=== PATIENT | male | born 1980 | race Two or more races ===

== ENCOUNTER 2016-12-14 12:42 | Emergency (ER) | payer SELFPAY ==
[2016-11-19 12:45] VITALS: BP 125/79
[~2016-12-14 12:42] MED LIST: DOXY100C2 PO; HYDR-971 PO
[2016-12-15] MEDS ORDERED: EPIN0.3A3 IJ (22:41)
[2016-12-15] MEDS ORDERED: PRED20TA PO (22:41)
== END 2016-12-14 13:54 | disposition left against medical advice (07) ==
LOC: ER 12:42
DX: R21 Rash and other nonspecific skin eruption (principal); Z53.21 Procedure and treatment not carried out due to patient leaving prior to being seen by health care provider

== ENCOUNTER 2016-12-15 20:29 | Emergency (ER) | payer SELFPAY ==
[~2016-12-15] VITALS: Ht 172.7 cm; Wt 78.0 kg
[2016-12-15 21:06] VITALS: BP 136/89
[2016-12-15] MEDS ORDERED: DEXAMETHASONE SOD PHOS 20 MG/5 ML VIAL. IM ONE (22:30)
[2016-12-15] MEDS ORDERED: PRED20TA PO (22:41)
[2016-12-15] MEDS ORDERED: EPIN0.3A3 IJ (22:41)
--- NOTE | 2016-12-15 22:42 | PHYS DOC ---
Past Medical History Past Medical History: Other Additional Past Medical Histor: LEFT PNKIE CIARAN Past Surgical History: No Surgical History Additional Information: Occasional smoker Alcohol Use: Occasionally Drug Use: None Adult General Chief Complaint Chief Complaint: ALLERGIC REACTION HPI HPI Patient is a 36 year old male who presents with rash due to presumed allergic reaction for 1 month. He had a swelling of his lips that started this evening at 1900. He's had previous episodes of lip swelling with the rash over the last month as well. The rash and the swelling usually improves with Benadryl. He last took Benadryl at 2000 tonight. He states that the swelling has not gone down on the lip, however the lip feels better after taking Benadryl. He denies having any shortness of breath with the rash or swelling of the lip. He does not have any swelling of the tongue or throat. He does not know what is causing the allergic reaction. He denies any change in household products. He is not taking any new medications. He does not take any prescribed medications at home on a regular basis. He has tried tracking his diet to determine if it is a food allergy but has not noticed any patterns. He does not have a PCP. Review of Systems Review of Systems Constitutional: Denies fever or chills. [] Eyes: Denies change in visual acuity, redness, or eye pain. [] HENT: Denies ear pain, nasal congestion or sore throat. Denies swelling of the tongue or throat. Reports swelling of the upper lip. Respiratory: Denies cough or shortness of breath. [] Musculoskeletal: Denies back pain or joint pain. [] Integument: Denies skin lesions. Reports diffuse rash. Neurologic: Denies headache, focal weakness or sensory changes. [] Endocrine: Denies polyuria or polydipsia. [] Psych: Denies anxiety or depression. [] All systems reviewed and negative unless otherwise stated in the HPI. Current Medications Current Medications Current Medications Medications (Trade) Dose Ordered Sig/Adelaida Start Time Stop Time Status Last Admin Dose Admin Dexamethasone Sodium Phosphate (Decadron) 10 mg 1X ONCE 12/15/16 22:30 12/15/16 22:31 DC 12/15/16 22:26 10 MG Allergies Allergies Allergies Coded Allergies Type Severity Reaction Last Updated Verified Penicillins Allergy Severe 11/19/16 Yes Physical Exam Physical Exam Constitutional: Well developed, well nourished, no acute distress, non-toxic appearance. [] HENT: Normocephalic, atraumatic, bilateral external ears normal, oropharynx moist, no oral exudates, nose normal. Upper lip swelling. There is no swelling of the tongue. The airway is grossly patent. Eyes: PERRLA, EOMI, conjunctiva normal, no discharge. [] Neck: Normal range of motion, no tenderness, supple, no stridor. [] Cardiovascular: Heart rate regular rhythm, no murmur [] Lungs & Thorax: Bilateral breath sounds clear to auscultation without wheezes, rales, or rhonchi. No stridor. No respiratory distress. Skin: Warm, dry. Scattered urticaria diffusely. Back: No tenderness, no CVA tenderness. [] Extremities: No tenderness, no cyanosis, no clubbing, ROM intact, no edema. [] Neurologic: Alert and oriented X 3, normal motor function, normal sensory function, no focal deficits noted. [] Psychologic: Affect normal, judgement normal, mood normal. [] Current Patient Data Vital Signs Vital Signs Date Time Temp Pulse Resp B/P Pulse Ox O2 Delivery O2 Flow Rate FiO2 12/15/16 21:06 97.7 78 18 100 Room Air 97.7 EKG EKG [] Radiology/Procedures Radiology/Procedures [] Course & Med Decision Making Course & Med Decision Making Pertinent Labs and Imaging studies reviewed. (See chart for details) Patient presents with allergic reaction to unknown substance intermittently for one month. He began having swelling of his upper lip tonight, which he has had before as well. There is no respiratory compromise. Patient is given IM Decadron in the emergency department. He is discharged home with prescription for prednisone. He is instructed to take Pepcid along with Benadryl at home. He' s given a prescription for an EpiPen as well. He is strongly encouraged to follow-up with a primary care doctor to have allergy testing done so that he may know what to avoid in the future. Return precautions were discussed. He verbalizes understanding and agrees with plan. Dragon Disclaimer Dragon Disclaimer This electronic medical record was generated, in whole or in part, using a voice recognition dictation system. Departure Departure Impression: Primary Impression: Urticaria Additional Impression: Allergic reaction Disposition: HOME, SELF-CARE Condition: STABLE Referrals: NO PCP (PCP) Patient Instructions: Angioedema, [id number], Hives, [id number] Additional Instructions: You were seen for an allergic reaction to unknown substance. You were given a shot of steroids in the emergency department to help with the allergic reaction. Please complete all the prescribed steroid pills. You may continue to take Benadryl at home as needed for rash or itching. Pepcid can also help with rash or itching. You have received a perception for an EpiPen also. Use this if you have swelling of the tongue or throat pain causes difficulty breathing. Call 911 if you must use the EpiPen. Please follow-up with a primary care doctor for allergy testing to determine the cause of your allergic reaction. Return to the emergency department if you have increased swelling of the lips, swelling of the tongue or throat, difficulty breathing, or other new or concerning symptoms. Scripts Epinephrine (Epipen)0.3 Mg/0.3 Ml Auto.injct0.3 Mg IJ UD #1 Prov:OSMAN MACK 12/15/16 Prednisone 20 Mg [id number] Mg PO DAILY 5 Days Prov:OSMAN MACK 12/15/16 Problem Qualifiers Additional Impression: Allergic reaction Encounter type: initial encounter Qualified Code: T78.40XA - Allergy, unspecified, initial encounter OSMAN MACK Dec 15, 2016 22:42
== END 2016-12-15 22:58 | disposition home or self-care (01) ==
LOC: ER 20:29
DX: L50.0 Allergic urticaria (principal); F17.200 Nicotine dependence, unspecified, uncomplicated; Z88.0 Allergy status to penicillin
CPT/HCPCS: 96372; 99283; J1100

== ENCOUNTER 2017-02-16 22:54 | Emergency (ER) | payer SELFPAY ==
[~2017-02-16] VITALS: Ht 180.3 cm; Wt 74.8 kg
[~2017-02-16 22:54] MED LIST changes: +EPIN0.3A3 IJ; +PRED20TA PO
--- NOTE | 2017-02-16 23:18 | PHYS DOC ---
Past Medical History Past Medical History: Other Additional Past Medical Histor: LEFT PNKIE FX Past Surgical History: No Surgical History Alcohol Use: Occasionally Drug Use: None Adult General Chief Complaint Chief Complaint: ALLERGIC REACTION HPI HPI Patient is a 36 year old male with intermittent itchy hives with undiagnosed allergy who presents with female significant other for diffuse itchy hives. States he did have slight throat swelling earlier, but this has now resolved without intervention. He has an epipen, but did not use it. He has been trying to get in to outpatient allergy testing, however he has not been able to do this due to work schedule conflicts. He denies current difficulty breathing, throat swelling, sore throat, voice changes, nausea or vomiting, known exposure. Review of Systems Review of Systems Constitutional: Denies fever or chills [] Eyes: Denies change in visual acuity, redness, or eye pain [] HENT: Denies nasal congestion or sore throat [] Respiratory: Denies cough or shortness of breath [] Cardiovascular: No additional information not addressed in HPI [] GI: Denies abdominal pain, nausea, vomiting, bloody stools or diarrhea [] : Denies dysuria or hematuria [] Musculoskeletal: Denies back pain or joint pain [] Integument: Denies skin lesions [] Neurologic: Denies headache, focal weakness or sensory changes [] Endocrine: Denies polyuria or polydipsia [] Current Medications Current Medications Current Medications Medications (Trade) Dose Ordered Sig/Adelaida Start Time Stop Time Status Last Admin Dose Admin Diphenhydramine HCl (Benadryl) 25 mg 1X ONCE 02/16/17 23:30 02/16/17 23:31 DC 02/16/17 23:21 25 MG Famotidine (Pepcid) 20 mg 1X ONCE 02/16/17 23:30 02/16/17 23:31 DC 02/16/17 23:22 20 MG Prednisone (Prednisone) 60 mg 1X ONCE 02/16/17 23:30 02/16/17 23:31 DC 02/16/17 23:22 60 MG Allergies Allergies Allergies Coded Allergies Type Severity Reaction Last Updated Verified Penicillins Allergy Severe 11/19/16 Yes Physical Exam Physical Exam Constitutional: Well developed, well nourished, no acute distress, non-toxic appearance. [] HENT: Normocephalic, atraumatic, bilateral external ears normal, oropharynx moist, no oral exudates, nose normal. No uvula edema. [] Eyes: PERRLA, EOMI, conjunctiva normal, no discharge. [] Neck: Normal range of motion, no tenderness, supple, no stridor. [] Cardiovascular:Heart rate regular rhythm [] Lungs & Thorax: Bilateral breath sounds clear to auscultation [] Abdomen: Bowel sounds normal, soft, no tenderness. [] Skin: Warm, dry, no erythema. Diffuse urticaria throughout extremities and thorax. [] Back: Normal range of motion. [] Extremities: No tenderness, ROM intact, no edema. [] Neurologic: Alert and oriented X 3, normal motor function, normal sensory function, no focal deficits noted. [] Psychologic: Affect normal, judgement normal, mood normal. [] Current Patient Data Vital Signs Vital Signs Date Time Temp Pulse Resp B/P Pulse Ox O2 Delivery O2 Flow Rate FiO2 02/16/17 22:57 98.5 92 18 100 Room Air 98.5 Course & Med Decision Making Course & Med Decision Making Pertinent Labs and Imaging studies reviewed. (See chart for details) Has improvement medications. Encouraged him to use make allergy testing regarding. Discussed symptomatic management. Return precautions given. He and understand and agree with plan. Dragon Disclaimer Dragon Disclaimer This electronic medical record was generated, in whole or in part, using a voice recognition dictation system. Departure Departure Impression: Primary Impression: Allergic reaction Disposition: 01 HOME, SELF-CARE Condition: STABLE Referrals: NO PCP (PCP) Patient Instructions: Food Allergy and Anaphylaxis Additional Instructions: Take Benadryl as needed for itching. Use EpiPen as needed for severe symptoms. Follow-up with your primary care doctor for allergy testing. Return for any concerns. Problem Qualifiers Primary Impression: Allergic reaction Encounter type: initial encounter Qualified Code: T78.40XA - Allergy, unspecified, initial encounter Billy LEAL MD Feb 16, 2017 23:17
[2017-02-16] MEDS ORDERED: diphenhydrAMINE HCL 25 MG CAPSULE PO ONE (23:30)
[2017-02-16] MEDS ORDERED: PREDNISONE 20 MG TABLET PO ONE (23:30)
[2017-02-16] MEDS ORDERED: FAMOTIDINE 20 MG TABLET. PO ONE (23:30)
[2017-02-16 23:40] VITALS: BP 112/59
== END 2017-02-16 23:40 | disposition home or self-care (01) ==
LOC: ER 22:54
DX: T78.40XA Allergy, unspecified, initial encounter (principal); Z88.0 Allergy status to penicillin
CPT/HCPCS: 99284; J7512; Q0163

== ENCOUNTER 2017-09-21 19:42 | Emergency (ER) | payer SELFPAY ==
[~2017-09-21] VITALS: Ht 180.3 cm; Wt 74.8 kg
[~2017-09-21 19:42] MED LIST changes: -EPIN0.3A3 IJ; +EPIPEN0.3 MG/0.3 IJ
[2017-09-21 20:00] VITALS: BP 135/69
[2017-09-21] MEDS ORDERED: PRED20TA PO (20:07)
[2017-09-21] MEDS ORDERED: HYDR-971 PO (20:07)
--- NOTE | 2017-09-21 20:07 | PHYS DOC ---
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 Patient states the pain gets worse after work. 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 States sometimes he gets some paresthesias down his right arm. No recent trauma or injury. Describes the pain as sharp. States sometimes it shoots. Rates the pain as 8 out of 10. States he was told he had tendonitis. Denies chest pain, shortness of breath, neck injury, headache, vision changes, weakness, abdominal pain, fever or nausea/vomiting. Review of Systems Review of Systems Constitutional: Denies fever or chills [] Eyes: Denies change in visual acuity, redness, or eye pain [] HENT: Denies nasal congestion or sore throat [] Respiratory: Denies cough or shortness of breath [] Cardiovascular: No additional information not addressed in HPI [] GI: Denies abdominal pain, nausea, vomiting, bloody stools or diarrhea [] : Denies dysuria or hematuria [] Musculoskeletal: Denies back pain. Complains of shoulder pain. [] Integument: Denies rash or skin lesions [] Neurologic: Denies headache, focal weakness or sensory changes [] Endocrine: Denies polyuria or polydipsia [] All other systems were reviewed and found to be within normal limits, except as documented in this note. Allergies Allergies Allergies Coded Allergies Type Severity Reaction Last Updated Verified Penicillins Allergy Severe 11/19/16 Yes Physical Exam Physical Exam Constitutional: Well developed, well nourished, no acute distress, non-toxic appearance. [] Eyes: PERRLA, EOMI, conjunctiva normal, no discharge. [] Neck: Normal range of motion, no tenderness, supple, no stridor. [] Cardiovascular:Heart rate regular rhythm, no murmur [] Lungs & Thorax: Bilateral breath sounds clear to auscultation [] Skin: Warm, dry, no erythema, no rash. [] Back: No tenderness, no CVA tenderness. [] Extremities: No bony tenderness, no cyanosis, no clubbing, ROM intact, no edema. NV intact. [] Neurologic: Alert and oriented X 3, normal motor function, normal sensory function, no focal deficits noted. [] Psychologic: Affect normal, judgement normal, mood normal. [] Current Patient Data Vital Signs Vital Signs Date Time Temp Pulse Resp B/P (MAP) Pulse Ox O2 Delivery O2 Flow Rate FiO2 09/21/17 20:00 98.2 91 16 96 Room Air 98.2 EKG EKG [] Radiology/Procedures Radiology/Procedures [] Course & Med Decision Making Course & Med Decision Making Pertinent Labs and Imaging studies reviewed. (See chart for details) []Patient states he was diagnosed with tendinitis. No bony tenderness. Pain radiates down right arm from shoulder and neck. Patient has had x-rays in the past that show no injury but has not had an MRI before. Discussed follow-up with orthopedics this week for evaluation. Potential need for MRI. Discussed reasons to return to the ED. Patient and family understand and agree with plan. Dragon Disclaimer Dragon Disclaimer This electronic medical record was generated, in whole or in part, using a voice recognition dictation system. Departure Departure Impression: Primary Impression: Cervical radiculopathy Disposition: 01 HOME, SELF-CARE Condition: STABLE Referrals: NO PCP (PCP) ANDERS MOORE MD Patient Instructions: Cervical Radiculopathy Scripts Prednisone (PREDNISONE) 20 Mg Tablet 2 TAB PO DAILY, #10 TAB Prov: NI VIRK 09/21/17 Hydrocodone/Apap 5-325 (NORCO 5-325 TABLET) 1 Each Tablet 1 TAB PO TID, #10 TAB Prov: NI VIRK 09/21/17 NI VIRK Sep 21, 2017 20:07
== END 2017-09-21 20:19 | disposition home or self-care (01) ==
LOC: ER 19:42
DX: M54.12 Radiculopathy, cervical region (principal); Z88.0 Allergy status to penicillin
CPT/HCPCS: 99283

== ENCOUNTER 2018-06-26 17:06 | Emergency (ER) | payer SELFPAY ==
[~2018-06-26] VITALS: Ht 167.6 cm; Wt 74.8 kg
[2018-06-26] MEDS ORDERED: IV NORMAL SALINE 1000ML BAG 1,000 ML IV SCH (17:19)
[2018-06-26 17:35] LABS: BASO # 0.1 x10^3/uL (0.0-0.2); BASO % 1 % (0-3); EOS % 0 % (0-3); HEMATOCRIT 42.5 % (39.0-53.0); HEMOGLOBIN 14.8 g/dL (13.0-17.5); LYMPH % 23 % (24-48); MEAN CORPUSCULAR HEMOGLOBIN 29 pg (25-35); MEAN CORPUSCULAR HGB CONC 35 g/dL (31-37); MEAN CORPUSCULAR VOLUME 83 fL (79-100); MONO # 1.2 x10^3/uL (0.0-1.1); MONO % 9 % (0-9); NEUT # 8.8 x10^3uL (1.8-7.7); NEUT % 67 % (31-73); PLATELET COUNT 299 x10^3/uL (140-400); RED BLOOD COUNT 5.12 x10^6/uL (4.30-5.70); RED CELL DISTRIBUTION WIDTH 12.7 % (11.5-14.5); WHITE BLOOD COUNT 13.1 x10^3/uL (4.0-11.0)
--- NOTE | 2018-06-26 17:35 | PHYS DOC ---
Past Medical History Past Medical History: Other Additional Past Medical Histor: LEFT PNKIE FX Past Surgical History: No Surgical History Alcohol Use: Occasionally Drug Use: None Adult General Chief Complaint Chief Complaint: Palpitations HPI HPI Patient is a 37 year old male who presents with was outside today for about 10 minutes when he started having palpitations and some dizziness and some shortness of air. Patient states that he has shortness of air for a couple weeks and was using a inhaler that he thought at [facility]. Patient states that he has left intermittent chest pain For last 4 months that he's been using ibuprofen, Tylenol, or BenGay. Patient states he has no medical history and takes no medications daily. Patient states he is allergic to penicillin. Review of Systems Review of Systems Constitutional: Denies fever or chills [] Eyes: Denies change in visual acuity, redness, or eye pain [] HENT: Denies nasal congestion or sore throat [] Respiratory: Denies cough. Occasional shortness of breath [] Cardiovascular: Palpitations, intermittent chest pain x 4 months GI: Denies abdominal pain, nausea, vomiting, bloody stools or diarrhea [] : Denies dysuria or hematuria [] Musculoskeletal: Denies back pain or joint pain [] Integument: Denies rash or skin lesions [] Neurologic: Denies headache, focal weakness or sensory changes [] Endocrine: Denies polyuria or polydipsia [] All other systems were reviewed and found to be within normal limits, except as documented in this note. Current Medications Current Medications Current Medications Medications (Trade) Dose Ordered Sig/Adelaida Start Time Stop Time Status Last Admin Dose Admin Lorazepam (Ativan) 2 mg 1X ONCE 06/26/18 20:45 06/26/18 20:46 DC 06/26/18 20:43 2 MG Magnesium Sulfate/ Dextrose 100 ml @ 100 mls/hr 1X ONCE 06/26/18 19:15 06/26/18 20:14 DC 06/26/18 19:32 100 MLS/HR Potassium Chloride (Klor-Con) 40 meq 1X ONCE 06/26/18 18:15 06/26/18 18:16 DC 06/26/18 18:44 40 MEQ Sodium Chloride 1,000 ml @ 1,000 mls/hr 1X ONCE 06/26/18 20:45 06/26/18 21:44 9/1/18 20:44 1,000 MLS/HR Allergies Allergies Allergies Coded Allergies Type Severity Reaction Last Updated Verified Penicillins Allergy Severe 11/19/16 Yes Physical Exam Physical Exam Constitutional: Well developed, well nourished, no acute distress, non-toxic appearance. [] HENT: Normocephalic, atraumatic, bilateral external ears normal, oropharynx moist, no oral exudates, nose normal. [] Eyes: PERRLA, EOMI, conjunctiva normal, no discharge. [] Neck: Normal range of motion, no tenderness, supple, no stridor. [] Cardiovascular:Heart rate regular rhythm, no murmur. Tachycardia[] Lungs & Thorax: Bilateral breath sounds clear to auscultation [] Abdomen: Bowel sounds normal, soft, no tenderness, no masses, no pulsatile masses. [] Skin: Warm, dry, no erythema, no rash. [] Back: No tenderness, no CVA tenderness. [] Extremities: No tenderness, no cyanosis, no clubbing, ROM intact, no edema. [] Neurologic: Alert and oriented X 3, normal motor function, normal sensory function, no focal deficits noted. [] Psychologic: Affect normal, judgement normal, mood normal. [] Current Patient Data Vital Signs Vital Signs Date Time Temp Pulse Resp B/P (MAP) Pulse Ox O2 Delivery O2 Flow Rate FiO2 06/26/18 17:06 98.8 126 20 166/91 (116) 97 Room Air 98.8 Lab Values Laboratory Tests Test 06/26/18 17:25 06/26/18 18:40 White Blood Count 13.1 x10^3/uL (4.0-11.0) H Red Blood Count 5.12 x10^6/uL (4.30-5.70) Hemoglobin 14.8 g/dL (13.0-17.5) Hematocrit 42.5 % (39.0-53.0) Mean Corpuscular Volume 83 fL (79-100) Mean Corpuscular Hemoglobin 29 pg (25-35) Mean Corpuscular Hemoglobin Concent 35 g/dL (31-37) Red Cell Distribution Width 12.7 % (11.5-14.5) Platelet Count 299 x10^3/uL (140-400) Neutrophils (%) (Auto) 67 % (31-73) Lymphocytes (%) (Auto) 23 % (24-48) L Monocytes (%) (Auto) 9 % (0-9) Eosinophils (%) (Auto) 0 % (0-3) Basophils (%) (Auto) 1 % (0-3) Neutrophils # (Auto) 8.8 x10^3uL (1.8-7.7) H Lymphocytes # (Auto) 3.0 x10^3/uL (1.0-4.8) Monocytes # (Auto) 1.2 x10^3/uL (0.0-1.1) H Eosinophils # (Auto) 0.0 x10^3/uL (0.0-0.7) Basophils # (Auto) 0.1 x10^3/uL (0.0-0.2) Sodium Level 138 mmol/L (136-145) Potassium Level 2.8 mmol/L (3.5-5.1) *L Chloride Level 101 mmol/L (98-107) Carbon Dioxide Level 26 mmol/L (21-32) Anion Gap 11 (6-14) Blood Urea Nitrogen 9 mg/dL (8-26) Creatinine 1.0 mg/dL (0.7-1.3) Estimated GFR (Cockcroft-Gault) 83.6 BUN/Creatinine Ratio 9 (6-20) Glucose Level 112 mg/dL (70-99) H Calcium Level 9.3 mg/dL (8.5-10.1) Total Bilirubin 0.8 mg/dL (0.2-1.0) Aspartate Amino Transferase (AST) 53 U/L (15-37) H Alanine Aminotransferase (ALT) 116 U/L (16-63) H Alkaline Phosphatase 82 U/L (46-116) Creatine Kinase 802 U/L (39-308) H Troponin I Quantitative < 0.017 ng/mL (0.000-0.055) Total Protein 8.3 g/dL (6.4-8.2) H Albumin 4.2 g/dL (3.4-5.0) Albumin/Globulin Ratio 1.0 (1.0-1.7) Lipase 123 U/L (73-393) Urine Collection Type Unknown Urine Color Yellow Urine Clarity Clear Urine pH 6.5 Urine Specific [place] 1.010 Urine Protein Negative mg/dL (NEG-TRACE) Urine Glucose (UA) Negative mg/dL (NEG) Urine Ketones (Stick) Negative mg/dL (NEG) Urine Blood Negative (NEG) Urine Nitrite Negative (NEG) Urine Bilirubin Negative (NEG) Urine Urobilinogen Dipstick 0.2 mg/dL (0.2 mg/dL) Urine Leukocyte Esterase Negative (NEG) Urine RBC 0 /HPF (0-2) Urine WBC 0 /HPF (0-4) Urine Bacteria 0 /HPF (0-FEW) Urine Opiates Screen Neg (NEG) Urine Methadone Screen Neg (NEG) Urine Barbiturates Neg (NEG) Urine Phencyclidine Screen Neg (NEG) Urine Amphetamine/Methamphetamine Pos (NEG) Urine Benzodiazepines Screen Neg (NEG) Urine Cocaine Screen Neg (NEG) Urine Cannabinoids Screen Neg (NEG) Urine Ethyl Alcohol Neg (NEG) Laboratory Tests 06/26/18 17:25 Laboratory Tests 06/26/18 17:25 EKG EKG Tachycardia, no STEMI[] Interpretation Time: [address] Valverde Radiology/Procedures Radiology/Procedures Chest x ray Impressions: [facility] [address] [place], [place] [id number] IMAGING REPORT Signed PATIENT: GREGG BRAN ACCOUNT: [id number] : 1980 LOCATION: ER AGE: 37 SEX: M EXAM STATUS: REG ER ORD. PHYSICIAN: LUX LEBLANC APRN REASON: palpatations PROCEDURE: CHEST PA & LATERAL CHEST PA LATERAL History: Chest pain, palpitations Comparison: None. Findings: 2 views of the chest are submitted. There is no infiltrate, pneumothorax, or effusion. The cardiac silhouette is within normal limits in size. Impression: 1. There is no radiographic evidence of acute cardiopulmonary disease. Electronically signed by: Malou Matthews MD (06/26/2018 6:29 PM) [facility] DICTATED and SIGNED BY: MALOU MATTHEWS MD DATE: 06/26/18 1828 Course & Med Decision Making Course & Med Decision Making Patient is alert and oriented. Patient denies any syncope but states that today he was outside for 10 minutes and began having palpitations and some dizziness. Patient denies chest pain at this time but states that he's had left chest pain that was intermittent over the last 4 months she's been using ibuprofen, Tylenol , BenGay 4. Patient states that he drank 8 beers last night and thinks that maybe somebody put something in one of his beers. Upon examination patient's lungs are clear to auscultation and no chest pain can't be reproduced with palpation. Patient states he is not currently having chest pain. Patient is tachycardic at 123. Patient EKG showed tachycardia and no STEMI that was read by Dr Valverde. Patient denies any numbness or tingling or muscle cramps. Patient is neurologically intact. Patient denies any nausea or vomiting or diarrhea. Patient denies any drug use. Patient x ray shows no acute findings. Patient is given Ativan 2 mg IV and given 1 g of magnesium IV. Patient's urine came back positive for methamphetamines. I explain to the patient that his urine came back with methamphetamine in it. It is explained to patient that that is was causing his heart to race and felt palpitations. It was also explained to the patient about low potassium. Patient states he is feeling better. Patient states his is here and is going to drive him home. Patient states that he continues to have no pain, soa, chest pain, nausea, dizziness, headache, or abdominal pain. Patient is still tachycardic at 126. Per Dr Lui the patient will receive another 2mg Ativan dose and another NS Bolus. The patient is alert and oriented and is not drowsy. Patient is alert and oriented. Patients heart rate is down to 108. Patient is discharged home and to follow up with his primary care if needed. [] Dragon Disclaimer Dragon Disclaimer This electronic medical record was generated, in whole or in part, using a voice recognition dictation system. Departure Departure Impression: Primary Impression: Palpitations Additional Impression: Amphetamine adverse reaction Disposition: HOME, SELF-CARE Condition: STABLE Referrals: NO PCP (PCP) Patient Instructions: Amphetamine Abuse-Brief, Palpitations Additional Instructions: Follow up with your primary care physician. Drink plenty of fluids. Problem Qualifiers Additional Impression: Amphetamine adverse reaction Encounter type: initial encounter Qualified Codes: T43.625A - Adverse effect of amphetamines, initial encounter LUX LEBLANC INVENTORY ACCOUNTANT Jun 26, 2018 17:35
[2018-06-26 17:53] LABS: ALBUMIN 4.2 g/dL (3.4-5.0); TOTAL PROTEIN 8.3 g/dL (6.4-8.2)
[2018-06-26 17:54] LABS: CALCIUM 9.3 mg/dL (8.5-10.1); GFR 83.6; TOTAL BILIRUBIN 0.8 mg/dL (0.2-1.0)
[2018-06-26 17:57] LABS: POTASSIUM 2.8 mmol/L (3.5-5.1)
[2018-06-26] MEDS ORDERED: POTASSIUM CHLORIDE 20 MEQ TABLET.ER. PO ONE (18:15)
--- NOTE | 2018-06-26 18:32 | RAD ---
CHEST PA LATERAL History: Chest pain, palpitations Comparison: None. Findings: 2 views of the chest are submitted. There is no infiltrate, pneumothorax, or effusion. The cardiac silhouette is within normal limits in size. Impression: 1. There is no radiographic evidence of acute cardiopulmonary disease. Electronically signed by: To Harvey MD (06/26/2018 6:29 PM) [facility]
[2018-06-26 18:55] LABS: BILIRUBIN,URINE NEGATIVE (NEG); CLARITY,URINE CLEAR; COLOR,URINE YELLOW; NITRITE,URINE NEGATIVE (NEG); PH,URINE 6.5; PROTEIN,URINE NEGATIVE (NEG-TRACE); UROBILINOGEN,URINE 0.2 mg/dL (0.2 mg/dL)
[2018-06-26 19:01] LABS: BACTERIA,URINE 0 /HPF (0-FEW); RBC,URINE 0 /HPF (0-2); WBC,URINE 0 /HPF (0-4)
[2018-06-26 19:08] LABS: AMPHETAMINE/METHAMPHETAMINE POS (NEG); BARBITURATES NEG (NEG); BENZODIAZEPINES NEG (NEG); CANNABINOIDS NEG (NEG); COCAINE NEG (NEG); METHADONE NEG (NEG); OPIATES NEG (NEG); PHENCYCLIDINE NEG (NEG)
[2018-06-26] MEDS ORDERED: MAGNESIUM SULFATE 1GM 100 ML IV ONE (19:15)
[2018-06-26] MEDS ORDERED: IV NORMAL SALINE 1000ML BAG 1,000 ML IV ONE (20:45)
[2018-06-26 21:40] VITALS: BP 156/92
--- NOTE | 2018-06-27 07:21 | EKG ---
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
== END 2018-06-26 21:50 | disposition home or self-care (01) ==
LOC: ER 17:06
DX: T43.625A Adverse effect of amphetamines, initial encounter (principal); R00.2 Palpitations; R42 Dizziness and giddiness; R07.89 Other chest pain; Z88.0 Allergy status to penicillin; Y92.89 Other specified places as the place of occurrence of the external cause
CPT/HCPCS: 36415; 71046; 80053; 80307; 81001; 82550; 83690; 84484; 85025; 93005; 96361; 96365; 96375; 96376; 99285; J2060; J3475; J7030; G0479